=== PATIENT | female | born 1995 | race Caucasian/White ===

== ENCOUNTER 2018-01-23 19:25 | Emergency (ER) | payer SELFPAY ==
[2018-01-23 19:34] VITALS: BP 135/83; PULSE 76; RESP 18; TEMP 36.2; O2SAT 100; BMI 32.3
[2018-01-23] MEDS: SODIUM CHLORIDE 0.9% 1,000 ML 150 ML IV (23:10)
[2018-01-23] MEDS: KETOROLAC 60 MG/2 ML VIAL 30 MG IV (23:10)
[2018-01-23] MEDS: PANTOPRAZOLE 40 MG VIAL IV (23:11)
[2018-01-23 23:25] LABS: Add Manual Diff / Slide Review NO; Basophils Percent Auto 0.5 % (0-2); Eosinophils Percent Auto 3.4 % (2-4); Hematocrit 35.6 % (36-46); Hemoglobin 11.9 g/dL (12.0-16.0); Lymphocytes Percent Auto 46.9 % (25-40); Mean Corpuscular HGB Conc 33.5 % (30-36); Mean Corpuscular Hemoglobin 28.8 PG (26-34); Mean Corpuscular Volume 85.9 fL (80-100); Monocytes Percent Auto 6.5 % (3-14); Neutrophils Absolute Auto 2500 /uL (3000-5900); Neutrophils Percent Auto 42.7 % (50-75); Platelet Count 192 X10^3/uL (150-400); Red Blood Cell Count 4.15 X10^6/uL (4.0-5.2); Red Cell Distribution Width 13.9 % (11.6-14.8)
[2018-01-23 23:39] LABS: Alanine Aminotransferase 32 IU/L (9-52); Albumin 3.5 g/dL (3.5-5.0); Albumin Globulin Ratio 1.3 (1.0-2.8); Alkaline Phosphatase 54 U/L (38-126); Aspartate Aminotransferase 24 IU/L (14-36); BUN Creatinine Ratio 21.4 (6-22); Bilirubin Total 0.2 mg/dL (0.2-1.3); Blood Urea Nitrogen 15 mg/dL (7-17); Calcium 8.9 mg/dL (8.4-10.2); Carbon Dioxide 27 mmol/L (22-32); Chloride 105 mmol/L (98-107); Estimated Glomerular Filt Rate > 60.0 mL/min (>60); Globulin 2.6 g/dL (1.7-4.1); Glucose 87 mg/dL (70-100); HEMOLYSIS < 15 (0-50); Lipase 79 U/L (23-300); Potassium 3.8 mmol/L (3.4-5.1); Sodium 140 mmol/L (137-145); Total Protein 6.1 g/dL (6.3-8.2)
[2018-01-23 23:40] VITALS: BP 138/86; PULSE 58; O2SAT 99
--- NOTE | 2018-01-24 00:56 | ED_ITS ---
HPI - Abdominal Pain General Chief Complaint: Abdominal Pain Stated Complaint: ABD PAIN Time Seen by Provider: 01/23/18 22:03 Source: patient Mode of arrival: ambulatory Limitations: no limitations History of Present Illness HPI narrative: The patient presents with upper and lower abdominal pain for the past 2 days. The pain is in epigastric and suprapubic areas. She has no fever. She has no associated nausea, vomiting or diarrhea. Her appetite has been decreased. She has no urinary symptoms. Her last menstrual cycle was 4 days ago and was irregular and abnormally light. She does not believe she is . She was seen here July 2017 with abdominal pain. Ultrasound at that time revealed a fluid collection in the right adnexal region, but the ovary appeared normal. She is on medication for PCOS. Regarding the abdominal pain she does a lot a lifting work. She can recall no injury. Related Data Home Medications Medication Instructions Recorded Confirmed acetaminophen 325 mg PO PRN PRN #0 08/19/17 01/23/18 Previous Rx's Medication Instructions Recorded norgestimate-ethinyl estradiol 1 tab PO QDAY #3 pac 08/27/17 [Ortho-Cyclen (28)] ibuprofen 600 mg PO QID PRN #30 tab 01/24/18 tramadol 50 mg PO Q6H PRN #20 tab 01/24/18 Allergies Allergy/AdvReac Type Severity Reaction Status Date / Time Penicillins [PENICILLINS] Allergy Intermediate Verified 01/23/18 19:56 Review of Systems Review of Systems All systems reviewed & are unremarkable except as noted in HPI and below Constitutional Denies chills, Denies fever(s), Denies lethargy and Denies weakness ENT Ears, Nose, Mouth, and Throat: Denies dysphagia, Denies sinus pressure and Denies sore throat Cardiovascular Denies chest pain, Denies rapid heart rate, Denies edema, Denies dyspnea and Denies dyspnea on exertion Respiratory Denies cough, Denies dyspnea, Denies dyspnea on exertion and Denies wheezing Gastrointestinal Gastrointestinal: Reports as per HPI, Reports abdominal pain, Denies change in bowel habits, Denies dysphagia, Denies diarrhea, Denies nausea and Denies vomiting Genitourinary Reports dysmenorrhea, Denies flank pain, Denies urinary hesitancy, Denies urinary urgency and Denies vaginal discharge Musculoskeletal Denies back pain Integumentary/Breasts Denies erythema, Denies rash and Denies wounds Neurologic Denies weakness Allergic/Immunologic Denies wheezing [facility] Medical History PCOS (polycystic ovarian syndrome) (Acute) Surgical History History of third molar tooth extraction Social History Smoking Status: Former smoker Exam Initial Vital Signs Initial Vital Signs: Vital Signs Temperature 97.2 F L 01/23/18 19:34 Pulse Rate 76 01/23/18 19:34 Respiratory Rate 18 01/23/18 19:34 Blood Pressure 135/83 H 01/23/18 19:34 Pulse Oximetry 100 01/23/18 19:34 Const General: cooperative and well developed Nutritional Appearance: well nourished Orientation: alert, awake, oriented x3 and not confused HENMT Head: normocephalic and atraumatic Ears: external ears normal and TM's normal bilaterally Nose: external nose normal and No nasal discharge Face and sinus: sinuses nontender, face symmetric, no sinus tenderness and No dry mucous membranes Mouth: oral mucosae normal and moist mucous membranes Teeth and gingiva: dentition normal Throat: tonsils normal and uvula midline Eyes General: appearance normal, both eyes and all related structures (no icterus) Resp Effort & Inspection: normal respiratory effort, able to speak in complete sentences, no respiratory distress and no use of accessory muscles Auscultation: clear to auscultation bilaterally, no rales, no rhonchi and no wheezes Cardio Rate: regular rate Rhythm: regular rhythm Heart Sounds: no click, no gallops, no murmurs and no rubs Pulses: normal peripheral pulses GI Inspection: non-distended Palpation: no hepatosplenomegaly and tender (Tender in the upper central abdomen and in the suprapubic area. Tenderness seems to be focused along the rectus sheath. No guarding or rebound. No right lower quadrant tenderness.) Auscultation: normal bowel sounds Course Orders Ordered: ED Orders 01/23/18 23:15 Complete Blood Count AUTO DIFF Stat Comprehensive Metabolic Panel Stat Lipase Stat Discontinued Medications Sodium Chloride (Normal Saline 0.9%) 1,000 mls @ 150 mls/hr IV CONT WARNER Last Admin: 01/23/18 23:10 Dose: 150 mls/hr Ketorolac Tromethamine (Toradol) 30 mg IV NOW ONE Stop: 01/23/18 22:38 Last Admin: 01/23/18 23:10 Dose: 30 mg Pantoprazole Sodium (Protonix) 40 mg IV NOW ONE Stop: 01/23/18 22:38 Last Admin: 01/23/18 23:11 Dose: 40 mg Tramadol HCl (Ultram 50mg Prepack) 1 bottle MISC SEEINSTR ONE Stop: 01/24/18 01:17 Last Admin: 01/24/18 01:45 Dose: 1 bottle Vital Signs - 8 hr 01/23/18 19:34 01/23/18 23:40 01/24/18 01:30 Temperature 97.2 F L Pulse Rate 76 58 L 73 Respiratory Rate 18 Blood Pressure 135/83 H Blood Pressure [Right Arm] 138/86 H 121/70 H Pulse Oximetry 100 99 98 MDM - Abdominal Pain Medical Records Attestation: I reviewed the patient's medical records. Lab Data Attestation: I reviewed the patient's lab results. Result diagrams: 01/23/18 23:15 01/23/18 23:15 Lab Results 01/23/18 01/23/18 Range/Units 23:15 23:15 WBC 6.0 (4.5-11.0) X10^3/uL RBC 4.15 (4.0-5.2) X10^6/uL Hgb 11.9 L (12.0-16.0) g/dL Hct 35.6 L (36-46) % MCV 85.9 (80-100) fL MCH 28.8 (26-34) PG MCHC 33.5 (30-36) % RDW 13.9 (11.6-14.8) % Plt Count 192 (150-400) X10^3/uL Neut % (Auto) 42.7 L (50-75) % Lymph % (Auto) 46.9 H (25-40) % [place] % (Auto) 6.5 (3-14) % Eos % (Auto) 3.4 (2-4) % Baso % (Auto) 0.5 (0-2) % Neut # (Auto) 2500 L (7544-6036) /uL Sodium 140 (137-145) mmol/L Potassium 3.8 (3.4-5.1) mmol/L Chloride 105 (98-107) mmol/L Carbon Dioxide 27 (22-32) mmol/L BUN 15 (7-17) mg/dL Creatinine 0.70 (0.52-1.04) mg/dL Estimated GFR > 60.0 (>60) mL/min BUN/Creatinine Ratio 21.4 (6-22) Glucose 87 (70-100) mg/dL Calcium 8.9 (8.4-10.2) mg/dL Total Bilirubin 0.2 (0.2-1.3) mg/dL AST 24 (14-36) IU/L ALT 32 (9-52) IU/L Alkaline Phosphatase 54 (38-126) U/L Total Protein 6.1 L (6.3-8.2) g/dL Albumin 3.5 (3.5-5.0) g/dL Globulin 2.6 (1.7-4.1) g/dL Albumin/Globulin Ratio 1.3 (1.0-2.8) Lipase 79 (23-300) U/L Point of care testing: Point of Care Testing Test Results Negative Urine Dip Bedside Urine Glucose Negative Bedside Urine Bilirubin - Negative Bedside Urine Ketone - Negative Urine Specific [place] 1.020 Bedside Urine Occult Blood - Negative Bedside Urine pH 6.5 Bedside Urine Protein - Negative Bedside Urine Urobilinogen - Negative Bedside Urine Nitrite - Negative Discharge Plan Departure Patient Disposition: Home, Self-Care Clinical Impression: Abdominal wall pain Discharge Date/Time: 01/24/18 01:56 Interventions: ED Discharge Assessment Last Done: 01/24/18 01:55 Instructions: DI for Abdominal Pain-Adult Activity Restrictions/Additional Instructions: Motrin 600 mg every 6 hr as needed for pain. Tramadol every 6 hr for added pain control. Return here for increasing pain or fever. Prescriptions: New tramadol 50 mg tablet 50 mg PO Q6H PRN (Reason: pain) Qty: 20 RF: 0 ibuprofen 600 mg tablet 600 mg PO QID PRN (Reason: pain) Qty: 30 RF: 0 No Action acetaminophen 325 MG tablet 325 mg PO PRN PRN (Reason: Pain (Scale Score 1-3)) Qty: 0 RF: 0 norgestimate-ethinyl estradiol [Ortho-Cyclen (28)] 1 EACH tablet 1 tab PO QDAY Qty: 3 RF: 3
[2018-01-24 01:30] VITALS: BP 121/70; PULSE 73; O2SAT 98
[2018-01-24] MEDS: TRAMADOL 50 MG PREPACK 1 BOTTLE MISC (01:45)
--- NOTE | 2018-03-04 19:55 | PC.NURSE ---
Addendum entered by Saida Douglass R.N. 03/05/18 18:39: It took two and one half hours to infuse. Original Note: She received 375 ml of her normal saline.625 ml wasted.
== END 2018-01-24 01:56 | disposition home or self-care (01) ==
PROVIDERS: Emergency Provider Emergency Medicine; PCP Obstetrics & Gynecology
DX: R10.9 Unspecified abdominal pain (principal)
CPT/HCPCS: 36415; 80053; 81003; 81025; 83690; 85025; 96361; 96374; 96375; 99283; 99284; C9113; J1885

== ENCOUNTER 2018-01-26 19:06 | Emergency (ER) | payer SELFPAY ==
[2018-01-26 19:09] VITALS: BP 136/90; PULSE 67; RESP 20; TEMP 37.1; O2SAT 100
--- NOTE | 2018-01-26 19:33 | DI.RAD.S_ITS ---
PROCEDURE: XR ACUTE ABDOMEN SERIES INDICATIONS: Abdominal pain TECHNIQUE: One view chest and two views of the abdomen were acquired. COMPARISON: [facility], CR, ABD ACUTE SERIES, 10/02/2011, 9:47. FINDINGS: Surgical changes and devices: None. Chest: Lungs are clear. Heart size is normal. No pleural effusions. No pneumoperitoneum. Abdomen: Bowel gas pattern is normal. No suspicious calcifications. Visualized solid organ contours appear normal. Bones: No suspicious bony lesions. IMPRESSION: No acute process. Dictated by: Renetta Cedeño M.D. on 01/26/2018 at 20:26 Approved by: Renetta Cedeño M.D. on 01/26/2018 at 20:26
--- NOTE | 2018-01-26 19:33 | DI.US.S_ITS ---
PROCEDURE: US ABDOMEN COMPLETE INDICATIONS: PAIN TECHNIQUE: Real-time scanning was performed of the abdominal and retroperitoneal organs, with image documentation. COMPARISON: None. FINDINGS: Liver: Liver is normal in size and homogeneous in echotexture. Gallbladder: Is within normal limits Biliary ducts: Intrahepatic bile ducts are non-dilated. Extrahepatic bile duct caliber measures 7 mm. Normal is 6-7 mm or less in diameter, or 10 mm or less post-cholecystectomy. Pancreas: Visualized portions of the pancreas are sonographically normal. Spleen: Spleen is normal in size and homogeneous in echotexture. Kidneys: Kidneys are normal in size and echotexture. Right kidney measures 11.3 cm long; left kidney measures 10.6 cm long. No hydronephrosis or nephrolithiasis. No solid masses. Aorta: Visualized aorta is normal in caliber at less than 3 cm. Iliacs: Proximal common iliac arteries are normal in caliber at less than 2.5 cm. IVC: Intrahepatic inferior vena cava is patent. Miscellaneous: No free abdominal fluid. IMPRESSION: No acute process. Dictated by: Renetta Cedeño M.D. on 01/26/2018 at 20:05 Approved by: Renetta Cedeño M.D. on 01/26/2018 at 20:06
[2018-01-26 19:52] LABS: Add Manual Diff / Slide Review NO; Basophils Percent Auto 0.4 % (0-2); Eosinophils Percent Auto 1.8 % (2-4); Hematocrit 38.8 % (36-46); Hemoglobin 13.4 g/dL (12.0-16.0); Lymphocytes Percent Auto 28.3 % (25-40); Mean Corpuscular HGB Conc 34.4 % (30-36); Mean Corpuscular Volume 84.3 fL (80-100); Monocytes Percent Auto 4.9 % (3-14); Neutrophils Absolute Auto 4700 /uL (3000-5900); Neutrophils Percent Auto 64.6 % (50-75); Platelet Count 224 X10^3/uL (150-400); Red Cell Distribution Width 13.7 % (11.6-14.8); White Blood Cell Count 7.3 X10^3/uL (4.5-11.0)
[2018-01-26 20:00] VITALS: BP 127/77; PULSE 66; RESP 15; O2SAT 100
[2018-01-26] MEDS: SODIUM CHLORIDE 0.9% 1,000 ML 150 ML IV (20:02)
[2018-01-26] MEDS: PANTOPRAZOLE 40 MG VIAL IV (20:02)
[2018-01-26 20:15] LABS: Alanine Aminotransferase 28 IU/L (9-52); Albumin 4.5 g/dL (3.5-5.0); Albumin Globulin Ratio 1.6 (1.0-2.8); Alkaline Phosphatase 60 U/L (38-126); Aspartate Aminotransferase 29 IU/L (14-36); BUN Creatinine Ratio 11.4 (6-22); Bilirubin Total 0.4 mg/dL (0.2-1.3); Blood Urea Nitrogen 8 mg/dL (7-17); Calcium 9.2 mg/dL (8.4-10.2); Carbon Dioxide 32 mmol/L (22-32); Chloride 99 mmol/L (98-107); Estimated Glomerular Filt Rate > 60.0 mL/min (>60); Globulin 2.9 g/dL (1.7-4.1); Glucose 89 mg/dL (70-100); HEMOLYSIS < 15 (0-50); Lipase 54 U/L (23-300); Potassium 4.6 mmol/L (3.4-5.1); Sodium 138 mmol/L (137-145); Total Protein 7.4 g/dL (6.3-8.2)
--- NOTE | 2018-01-26 20:20 | ED_ITS ---
HPI - Abdominal Pain General Chief Complaint: Abdominal Pain Stated Complaint: ABDOMINAL PAIN Time Seen by Provider: 01/26/18 19:10 Source: patient and family Mode of arrival: ambulatory Limitations: no limitations History of Present Illness HPI narrative: [age] year old female presents for the 2nd time in the past few days for evaluation of generalized abdominal discomfort. It had started after she we developed constipation for 5 days and then generalized abdominal discomfort in the absence of fever or vomiting. She presented to the emergency department and had a thorough evaluation without any significant findings. She was discharged home and took some magnesium citrate and subsequently developed significant cramping and some diarrhea. She continues deny any fever or chills. She denies radiation of her discomfort. MD complaint: abdominal pain Onset (ago): day(s) Pain Consistency: constant Location: diffuse Severity: moderate Quality: cramping Radiation: none Migration to: no migration Relieving factors: nothing Exacerbating factors: eating and movement Associated symptoms: nausea Related Data Home Medications Medication Instructions Recorded Confirmed acetaminophen 325 mg PO PRN PRN #0 08/19/17 01/23/18 Previous Rx's Medication Instructions Recorded norgestimate-ethinyl estradiol 1 tab PO QDAY #3 pac 08/27/17 [Ortho-Cyclen (28)] ibuprofen 600 mg PO QID PRN #30 tab 01/24/18 tramadol 50 mg PO Q6H PRN #20 tab 01/24/18 Allergies Allergy/AdvReac Type Severity Reaction Status Date / Time Penicillins [PENICILLINS] Allergy Intermediate Verified 01/23/18 19:56 Review of Systems Review of Systems All systems reviewed & are unremarkable except as noted in HPI and below Constitutional Denies chills, Denies fever(s), Reports headache(s), Denies lethargy and Denies weakness Eyes Denies change in vision, Denies eye discharge, Denies irritation and Denies loss of vision ENT Ears, Nose, Mouth, and Throat: Denies change in voice, Reports headache(s), Denies neck pain and Denies sore throat Cardiovascular Denies chest pain, Denies irregular heart rhythm, Denies lightheadedness, Denies palpitations, Denies dyspnea, Denies dyspnea on exertion and Denies orthopnea Respiratory Denies cough, Denies dyspnea, Denies dyspnea on exertion and Denies wheezing Gastrointestinal Gastrointestinal: Reports abdominal pain, Denies change in bowel habits, Reports cramping, Denies diarrhea, Reports nausea and Denies vomiting Genitourinary Denies hematuria, Denies flank pain, Denies urinary incontinence and Denies urinary urgency Musculoskeletal Denies neck pain Integumentary/Breasts Denies pruritus, Denies erythema, Denies rash and Denies wounds Neurologic Denies confusion, Reports headache(s), Denies loss of vision and Denies weakness Psychiatric Denies anxiety, Denies confusion, Denies depression, Denies homicidal ideation and Denies suicidal ideation Endocrine Denies palpitations Hematologic/Lymphatic Denies easy bruising Allergic/Immunologic Denies wheezing [facility] Social History Smoking Status: Former smoker Exam Initial Vital Signs Initial Vital Signs: Vital Signs Temperature 98.8 F 01/26/18 19:09 Pulse Rate 67 01/26/18 19:09 Respiratory Rate 20 01/26/18 19:09 Blood Pressure 136/90 H 01/26/18 19:09 Pulse Oximetry 100 01/26/18 19:09 Const General: cooperative and well developed Nutritional Appearance: well nourished Orientation: alert, awake, oriented x3 and not confused HENIL Head: normocephalic and atraumatic Ears: external ears normal and TM's normal bilaterally Nose: external nose normal and No nasal discharge Face and sinus: sinuses nontender, face symmetric, no sinus tenderness and No dry mucous membranes Mouth: oral mucosae normal and moist mucous membranes Teeth and gingiva: dentition normal Throat: tonsils normal and uvula midline Eyes General: appearance normal, both eyes and all related structures Eyelids: eyelids normal Conjunctivae: conjunctivae normal Sclera: sclerae normal Pupils: PERRL EOM: EOM intact bilaterally Neck Neck: normal visual inspection, trachea midline, No lymphadenopathy, No midline deformity and No JVD Lymphatic: No lymphedema Chest Chest: normal inspection of the chest Resp Effort & Inspection: normal respiratory effort, able to speak in complete sentences, no respiratory distress and no use of accessory muscles Auscultation: clear to auscultation bilaterally, no rales, no rhonchi and no wheezes Cardio Rate: regular rate Rhythm: regular rhythm Heart Sounds: no click, no gallops, no murmurs and no rubs Pulses: normal peripheral pulses GI Inspection: non-distended Palpation: soft, no hepatosplenomegaly, No guarding, No pulsatile mass and tender Auscultation: normal bowel sounds Back/Spine/Pelvis Back: No CVA tenderness Cervical Spine: cervical ROM normal and No pain with cervical ROM Thoracic/Lumbar Spine: thoracic and lumbar spine normal to inspection Skin General: no rashes or lesions noted, No jaundice and No petechiae Neuro General: alert, oriented x3, gait normal and no focal motor deficits Speech: speech normal Extrem General: full ROM, no clubbing, cyanosis or edema, no pedal edema and no calf tenderness Psych Appearance: well kempt Mental Status: mental status grossly normal Attitude: cooperative Thought Content: normal and suicidality Judgment: judgment good Course Orders Ordered: ED Orders 01/26/18 19:33 US abdomen complete Stat XR acute abdomen series Stat 01/26/18 19:40 Complete Blood Count AUTO DIFF Stat Comprehensive Metabolic Panel Stat Lipase Stat Discontinued Medications Sodium Chloride (Normal Saline 0.9%) 1,000 mls @ 150 mls/hr IV CONT WARNER Last Infusion: 01/26/18 21:10 Dose: 0 mls/hr Admin: 01/26/18 20:02 Dose: 150 mls/hr Ketorolac Tromethamine (Toradol) 15 mg IV NOW ONE Stop: 01/26/18 20:25 Last Admin: 01/26/18 20:28 Dose: 15 mg Pantoprazole Sodium (Protonix) 40 mg IV NOW ONE Stop: 01/26/18 19:33 Last Admin: 01/26/18 20:02 Dose: 40 mg Vital Signs - 8 hr 01/26/18 19:09 01/26/18 20:00 Temperature 98.8 F Pulse Rate 67 66 Respiratory Rate 20 15 Blood Pressure 136/90 H Blood Pressure [Left Arm] 127/77 H Pulse Oximetry 100 100 MDM - Abdominal Pain Lab Data Result diagrams: 01/26/18 19:40 01/26/18 19:40 Lab Results 01/26/18 01/26/18 Range/Units 19:40 19:40 WBC 7.3 (4.5-11.0) X10^3/uL RBC 4.60 (4.0-5.2) X10^6/uL Hgb 13.4 (12.0-16.0) g/dL Hct 38.8 (36-46) % MCV 84.3 (80-100) fL MCH 29.0 (26-34) PG MCHC 34.4 (30-36) % RDW 13.7 (11.6-14.8) % Plt Count 224 (150-400) X10^3/uL Neut % (Auto) 64.6 (50-75) % Lymph % (Auto) 28.3 (25-40) % [place] % (Auto) 4.9 (3-14) % Eos % (Auto) 1.8 L (2-4) % Baso % (Auto) 0.4 (0-2) % Neut # (Auto) 4700 (6056-1228) /uL Sodium 138 (137-145) mmol/L Potassium 4.6 (3.4-5.1) mmol/L Chloride 99 (98-107) mmol/L Carbon Dioxide 32 (22-32) mmol/L BUN 8 (7-17) mg/dL Creatinine 0.70 (0.52-1.04) mg/dL Estimated GFR > 60.0 (>60) mL/min BUN/Creatinine Ratio 11.4 (6-22) Glucose 89 (70-100) mg/dL Calcium 9.2 (8.4-10.2) mg/dL Total Bilirubin 0.4 (0.2-1.3) mg/dL AST 29 (14-36) IU/L ALT 28 (9-52) IU/L Alkaline Phosphatase 60 (38-126) U/L Total Protein 7.4 (6.3-8.2) g/dL Albumin 4.5 (3.5-5.0) g/dL Globulin 2.9 (1.7-4.1) g/dL Albumin/Globulin Ratio 1.6 (1.0-2.8) Lipase 54 (23-300) U/L Point of care testing: Urine Dip Bedside Urine Glucose Negative Bedside Urine Bilirubin - Negative Bedside Urine Ketone - Negative Urine Specific [place] 1.015 Bedside Urine Occult Blood - Negative Bedside Urine pH 8.0 Bedside Urine Protein - Negative Bedside Urine Urobilinogen - Negative Bedside Urine Nitrite - Negative Bedside Urine Leukocytes - Negative Esterase Imaging Data US - abdomen: Radiologist's impression: PROCEDURE: US ABDOMEN COMPLETE INDICATIONS: PAIN TECHNIQUE: Real-time scanning was performed of the abdominal and retroperitoneal organs, with image documentation. COMPARISON: None. FINDINGS: Liver: Liver is normal in size and homogeneous in echotexture. Gallbladder: Is within normal limits Biliary ducts: Intrahepatic bile ducts are non-dilated. Extrahepatic bile duct caliber measures 7 mm. Normal is 6-7 mm or less in diameter, or 10 mm or less post-cholecystectomy. Pancreas: Visualized portions of the pancreas are sonographically normal. Spleen: Spleen is normal in size and homogeneous in echotexture. Kidneys: Kidneys are normal in size and echotexture. Right kidney measures 11.3 cm long; left kidney measures 10.6 cm long. No hydronephrosis or nephrolithiasis. No solid masses. Aorta: Visualized aorta is normal in caliber at less than 3 cm. Iliacs: Proximal common iliac arteries are normal in caliber at less than 2.5 cm. IVC: Intrahepatic inferior vena cava is patent. Miscellaneous: No free abdominal fluid. IMPRESSION: No acute process. Dictated by: Renetta Cedeño M.D. on 01/26/2018 at 20:05 Approved by: Renetta Cedeño M.D. on 01/26/2018 at 20:06 [facility] Narrative Medical decision making narrative: Patient first had constipation and then worsening symtpoms with mag citrate. Her exam is non specific and repeat labs are unremarkable. Imagining unremarkable Discharge Plan Departure Patient Disposition: Home, Self-Care Clinical Impression: Constipation, Abdominal pain Discharge Date/Time: 01/26/18 21:20 Interventions: ED Discharge Assessment Last Done: 01/26/18 21:15 Instructions: DI for Abdominal Pain-Adult Activity Restrictions/Additional Instructions: *You have been diagnosed with [ abdominal pain due to constipation ] *What to do: *Take over the counter medications as directed 1. Colace - softens your stool 2. Dulcolax - stimulates your bowels *Follow up with your primary care provider in 2-3 days, call for appointment *Return to ER if you should have any new, worsening or concerning symptoms *Drink plenty of water and eat foods high in fiber Prescriptions: No Action acetaminophen 325 MG tablet 325 mg PO PRN PRN (Reason: Pain (Scale Score 1-3)) Qty: 0 RF: 0 norgestimate-ethinyl estradiol [Ortho-Cyclen (28)] 1 EACH tablet 1 tab PO QDAY Qty: 3 RF: 3 tramadol 50 mg tablet 50 mg PO Q6H PRN (Reason: pain) Qty: 20 RF: 0 ibuprofen 600 mg tablet 600 mg PO QID PRN (Reason: pain) Qty: 30 RF: 0
[2018-01-26] MEDS: KETOROLAC 60 MG/2 ML VIAL 15 MG IV (20:28)
== END 2018-01-26 21:20 | disposition home or self-care (01) ==
PROVIDERS: Emergency Provider Emergency Medicine; PCP Obstetrics & Gynecology
DX: K59.00 Constipation, unspecified (principal); R10.9 Unspecified abdominal pain
CPT/HCPCS: 36591; 74022; 76700; 80053; 81003; 83690; 85025; 96361; 96374; 96375; 99283; 99284; C9113; J1885

== ENCOUNTER 2018-08-14 05:56 | Emergency (ER) | payer BC, SELFPAY ==
[2018-08-14 06:11] VITALS: BP 139/77; PULSE 76; RESP 20; TEMP 36.8; O2SAT 99; BMI 33.3
[2018-08-14 06:51] LABS: Add Manual Diff / Slide Review NO; Basophils Absolute Auto 0 /uL (0-100); Basophils Percent Auto 0.4 % (0-2); Eosinophils Absolute Auto 100 /uL (0-450); Eosinophils Percent Auto 2.1 % (2-4); Hematocrit 37.8 % (36-46); Hemoglobin 12.8 g/dL (12.0-16.0); Lymphocytes Absolute Auto 2200 /uL (1100-4500); Lymphocytes Percent Auto 43.5 % (25-40); Mean Corpuscular HGB Conc 33.8 % (30-36); Mean Corpuscular Hemoglobin 28.4 PG (26-34); Monocytes Absolute Auto 400 /uL (0-900); Monocytes Percent Auto 8.7 % (3-14); Neutrophils Absolute Auto 2300 /uL (1500-7000); Neutrophils Percent Auto 45.3 % (50-75); Platelet Count 191 X10^3/uL (150-400); Red Cell Distribution Width 13.9 % (11.6-14.8); White Blood Cell Count 5.1 X10^3/uL (4.5-11.0)
[2018-08-14 06:53] LABS: Prothrombin Time 10.9 SECONDS (10.1-12.7)
[2018-08-14 06:56] LABS: PTT Partial Thromboplastin Tim 31 SECONDS (26.4-36.2)
[2018-08-14 07:03] LABS: Alanine Aminotransferase 26 IU/L (9-52); Albumin 4.1 g/dL (3.5-5.0); Albumin Globulin Ratio 1.5 (1.0-2.8); Alkaline Phosphatase 50 U/L (38-126); Aspartate Aminotransferase 24 IU/L (14-36); BUN Creatinine Ratio 13.8 (6-22); Bilirubin Total 0.1 mg/dL (0.2-1.3); Blood Urea Nitrogen 11 mg/dL (7-17); Calcium 8.3 mg/dL (8.4-10.2); Carbon Dioxide 26 mmol/L (22-32); Chloride 104 mmol/L (98-107); Estimated Glomerular Filt Rate > 60.0 mL/min (>60); Globulin 2.8 g/dL (1.7-4.1); Glucose 91 mg/dL (70-100); HEMOLYSIS < 15 (0-50); Lipase 98 U/L (23-300); Potassium 3.4 mmol/L (3.4-5.1); Sodium 142 mmol/L (137-145); Total Protein 6.9 g/dL (6.3-8.2)
--- NOTE | 2018-08-14 07:04 | ED.ABDPAIN ---
HPI - Abdominal Pain General Chief Complaint: Abdominal Pain Stated Complaint: severe cramping, couldnt move, happened while driv Time Seen by Provider: 08/14/18 07:04 Source: patient Mode of arrival: ambulatory Limitations: no limitations History of Present Illness HPI narrative: Patient is a 22-year-old female here for evaluation of lower abdominal cramping and also passage of large blood clots from the vagina. She states that her symptoms started 3 days ago. They been worsening over the past 3 days. She states this morning she had a increase in the cramping which brought her into the emergency department. She is on day 3 of her menstrual cycle. She is currently taking an oral control pill. No prior abdominal surgeries. States that her last bowel movement was several days ago. Has had off and on fevers for the past month. Has been trying Tylenol and Motrin for her symptoms at home. Related Data Home Medications Medication Instructions Recorded Confirmed acetaminophen 325 mg PO PRN PRN #0 08/19/17 01/23/18 Previous Rx's Medication Instructions Recorded norgestimate-ethinyl estradiol 1 tab PO QDAY #3 pac 08/27/17 [Ortho-Cyclen (28)] ibuprofen 600 mg PO QID PRN #30 tab 01/24/18 tramadol 50 mg PO Q6H PRN #20 tab 01/24/18 Allergies Allergy/AdvReac Type Severity Reaction Status Date / Time Penicillins [PENICILLINS] Allergy Intermediate Verified 01/23/18 19:56 Review of Systems Constitutional Reports fatigue, Reports fever(s) and Denies headache(s) ENT Ears, Nose, Mouth, and Throat: Denies headache(s) Cardiovascular Denies chest pain and Denies dyspnea Respiratory Denies dyspnea Gastrointestinal Gastrointestinal: Reports abdominal pain, Denies change in bowel habits, Denies diarrhea, Denies nausea and Denies vomiting Genitourinary Comments: Passage of large clots through the vagina Musculoskeletal Denies myalgias and Denies arthralgias Integumentary/Breasts Denies rash Neurologic Denies confusion and Denies headache(s) Psychiatric Denies confusion Endocrine Reports fatigue Hematologic/Lymphatic Comments: Not on anticoagulation PFSH Social History Smoking Status: Former smoker Exam Initial Vital Signs Initial Vital Signs: Vital Signs Temperature 98.3 F 08/14/18 06:11 Pulse Rate 76 08/14/18 06:11 Respiratory Rate 20 08/14/18 06:11 Blood Pressure 139/77 08/14/18 06:11 Pulse Oximetry 99 08/14/18 06:11 Const General: cooperative, comfortable, well developed, well groomed and No acute distress Orientation: alert, awake and oriented x3 HENMT Head: normal to inspection and normocephalic Resp Effort & Inspection: normal respiratory effort Cardio Rate: regular rate GI Inspection: non-distended Palpation: soft, No firm and tender (Bilateral lower abdomen without rebound or guarding) Skin Lesions: no lesions Rashes: no rashes Neuro General: alert, awake and oriented x3 Cognition: normal cognition Speech: speech normal Extrem General: normal to inspection and capillary refill normal Psych Appearance: grossly normal and well kempt Course Orders Ordered: ED Orders 08/14/18 06:45 Comprehensive Metabolic Panel Stat Lipase Stat 08/14/18 06:48 Complete Blood Count AUTO DIFF Stat Partial Thromboplastin Time Stat Prothrombin Time INR Stat 08/14/18 07:50 Urinalysis and Microscopic Stat Vital Signs - 8 hr 08/14/18 06:11 Temperature 98.3 F Pulse Rate 76 Respiratory Rate 20 Blood Pressure 139/77 Pulse Oximetry 99 MDM - Abdominal Pain Lab Data Attestation: I reviewed the patient's lab results. Result diagrams: 08/14/18 06:48 08/14/18 06:45 Lab Results 08/14/18 08/14/18 08/14/18 Range/Units 06:45 06:48 06:48 WBC 5.1 (4.5-11.0) X10^3/uL RBC 4.50 (4.0-5.2) X10^6/uL Hgb 12.8 (12.0-16.0) g/dL Hct 37.8 (36-46) % MCV 84.0 (80-100) fL MCH 28.4 (26-34) PG MCHC 33.8 (30-36) % RDW 13.9 (11.6-14.8) % Plt Count 191 (150-400) X10^3/uL Neut % (Auto) 45.3 L (50-75) % Lymph % (Auto) 43.5 H (25-40) % [place] % (Auto) 8.7 (3-14) % Eos % (Auto) 2.1 (2-4) % Baso % (Auto) 0.4 (0-2) % Neut # (Auto) 2300 (3472-5097) /uL Lymph # (Auto) 2200 (7679-4266) /uL [place] # (Auto) 400 (0-900) /uL Eos # (Auto) 100 (0-450) /uL Baso # (Auto) 0 (0-100) /uL PT 10.9 (10.1-12.7) SECONDS INR 1.0 (0.9-1.3) APTT 31 (26.4-36.2) SECONDS Sodium 142 (137-145) mmol/L Potassium 3.4 (3.4-5.1) mmol/L Chloride 104 (98-107) mmol/L Carbon Dioxide 26 (22-32) mmol/L BUN 11 (7-17) mg/dL Creatinine 0.80 (0.52-1.04) mg/dL Estimated GFR > 60.0 (>60) mL/min BUN/Creatinine Ratio 13.8 (6-22) Glucose 91 (70-100) mg/dL Calcium 8.3 L (8.4-10.2) mg/dL Total Bilirubin 0.1 L (0.2-1.3) mg/dL AST 24 (14-36) IU/L ALT 26 (9-52) IU/L Alkaline Phosphatase 50 (38-126) U/L Total Protein 6.9 (6.3-8.2) g/dL Albumin 4.1 (3.5-5.0) g/dL Globulin 2.8 (1.7-4.1) g/dL Albumin/Globulin Ratio 1.5 (1.0-2.8) Lipase 98 (23-300) U/L Urine Color Urine Appearance Urine pH (4.5-8.0) Ur Specific [place] (1.000-1.035) Urine Protein (Negative) Urine Glucose (UA) (Negative) g/dL Urine Ketones (NEGATIVE) Urine Occult Blood (Negative) Urine Nitrate (Negative) Urine Bilirubin (NEGATIVE) Urine Urobilinogen (0.2) E.U./dL Ur Leukocyte Esterase (NEGATIVE) Urine RBC (0-5/HPF) Urine WBC (0-5/HPF) Urine Bacteria (None) Ur Culture Indicated? 08/14/18 Range/Units 07:50 WBC (4.5-11.0) X10^3/uL RBC (4.0-5.2) X10^6/uL Hgb (12.0-16.0) g/dL Hct (36-46) % MCV (80-100) fL MCH (26-34) PG MCHC (30-36) % RDW (11.6-14.8) % Plt Count (150-400) X10^3/uL Neut % (Auto) (50-75) % Lymph % (Auto) (25-40) % [place] % (Auto) (3-14) % Eos % (Auto) (2-4) % Baso % (Auto) (0-2) % Neut # (Auto) (1796-6809) /uL Lymph # (Auto) (2840-7238) /uL [place] # (Auto) (0-900) /uL Eos # (Auto) (0-450) /uL Baso # (Auto) (0-100) /uL PT (10.1-12.7) SECONDS INR (0.9-1.3) APTT (26.4-36.2) SECONDS Sodium (137-145) mmol/L Potassium (3.4-5.1) mmol/L Chloride (98-107) mmol/L Carbon Dioxide (22-32) mmol/L BUN (7-17) mg/dL Creatinine (0.52-1.04) mg/dL Estimated GFR (>60) mL/min BUN/Creatinine Ratio (6-22) Glucose (70-100) mg/dL Calcium (8.4-10.2) mg/dL Total Bilirubin (0.2-1.3) mg/dL AST (14-36) IU/L ALT (9-52) IU/L Alkaline Phosphatase (38-126) U/L Total Protein (6.3-8.2) g/dL Albumin (3.5-5.0) g/dL Globulin (1.7-4.1) g/dL Albumin/Globulin Ratio (1.0-2.8) Lipase (23-300) U/L Urine Color [place] Urine Appearance Cloudy Urine pH 6.5 (4.5-8.0) Ur Specific [place] 1.025 (1.000-1.035) Urine Protein 1+ H (Negative) Urine Glucose (UA) Negative (Negative) g/dL Urine Ketones Negative (NEGATIVE) Urine Occult Blood 3+ H (Negative) Urine Nitrate Negative (Negative) Urine Bilirubin Negative (NEGATIVE) Urine Urobilinogen 0.2 (0.2) E.U./dL Ur Leukocyte Esterase Negative (NEGATIVE) Urine RBC 30-100/hpf H (0-5/HPF) Urine WBC None seen (0-5/HPF) Urine Bacteria None seen (None) Ur Culture Indicated? Cult not indicated Point of care testing: Point of Care Testing Test Results Negative MDM Narrative Medical decision making narrative: Patient is a benign abdominal exam. She is on day 3 of her menstrual cycle. Urinalysis is negative. Her test is negative. She does have a history of PCOS. I feel that her symptoms today are related to her menstrual cycle. Will hold on any further workup for now. She is currently on control and also taking symptomatic treatment for her symptoms. Informed her that she needed to contact her sample stitcher provider to discuss the potential change in her medications. She was given return precautions. She expressed understanding and agreement with plan. Discharge Plan Departure Patient Disposition: Home Clinical Impression: Abdominal pain, Menses painful Instructions: DI for Abdominal Pain-Adult Activity Restrictions/Additional Instructions: Recommend you continue all of your medications as directed. 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 Return to the emergency department for any new symptoms. Prescriptions: No Action acetaminophen 325 MG tablet 325 mg PO PRN PRN (Reason: Pain (Scale Score 1-3)) Qty: 0 RF: 0 norgestimate-ethinyl estradiol [Ortho-Cyclen (28)] 1 EACH tablet 1 tab PO QDAY Qty: 3 RF: 3 tramadol 50 mg tablet 50 mg PO Q6H PRN (Reason: pain) Qty: 20 RF: 0 ibuprofen 600 mg tablet 600 mg PO QID PRN (Reason: pain) Qty: 30 RF: 0
--- NOTE | 2018-08-14 07:34 | PC.NURSE ---
Pt states that she cannot walk to BR. Needs full assist to get out of bed.
[2018-08-14 08:33] LABS: Bacteria Urine None Seen; WBC Urine None Seen (0-5/HPF)
[2018-08-14 08:44] LABS: Appearance Urine UA CLOUDY; Bilirubin Urine UA NEGATIVE (NEGATIVE); Color Urine UA ORANGE; Glucose Urine UA NEGATIVE (Negative); Ketones Urine UA NEGATIVE (NEGATIVE); Leukocyte Esterase Urine UA NEGATIVE (NEGATIVE); Nitrite Urine UA NEGATIVE (Negative); Occult Blood Urine UA 3+ (Negative); Protein Urine UA 1+ (Negative); Specific Gravity Urine UA 1.025 (1.000-1.035); Urobilinogen Urine UA 0.2 E.U./dL (0.2); pH Urine UA 6.5 (4.5-8.0)
[2018-08-14 08:56] LABS: Culture Indicated Urine Cult Not Indicated; RBC Urine 30-100/HPF (0-5/HPF)
[2018-08-14 09:21] VITALS: BP 119/76
== END 2018-08-14 09:22 | disposition home or self-care (01) ==
PROVIDERS: Emergency Provider Emergency Medicine; PCP Obstetrics & Gynecology
DX: R10.9 Unspecified abdominal pain (principal); N94.6 Dysmenorrhea, unspecified
CPT/HCPCS: 36591; 80053; 81001; 81025; 83690; 85025; 85610; 85730; 99283

== ENCOUNTER 2020-03-23 06:25 | Emergency (ER) | payer BC, SELFPAY ==
--- NOTE | 2020-03-23 06:28 | ED_ITS ---
HPI - Back Pain/Injury General Chief Complaint: Back Pain/Injury Stated Complaint: low back pain Time Seen by Provider: 03/23/20 06:27 Source: patient Mode of arrival: Ambulatory Limitations: no limitations History of Present Illness HPI Narrative: 24F former smoker with non contributory medical history presents with severe left lower back pain since moving awkwardly at work. She denies any direct trauma did not fall and impact her spine. She denies any numbness, tingling or weakness. She denies any radiation of the pain down her leg. She denies any loss of control of bowel or bladder. She states her pain is worse with motion and improves with rest. Related Data Home Medications Medication Instructions Recorded Confirmed acetaminophen 325 mg PO PRN PRN #0 08/19/17 01/23/18 Previous Rx's Medication Instructions Recorded ibuprofen 600 mg PO QID PRN #30 tab 01/24/18 tramadol 50 mg PO Q6H PRN #20 tab 01/24/18 norgestimate-ethinyl estradiol 1 tab PO QDAY #3 pac 10/15/18 [Ortho-Cyclen (28)] cyclobenzaprine 10 mg PO TID PRN #14 tab 03/23/20 hydrocodone-acetaminophen 1 tab PO Q4-6H PRN #10 tab 03/23/20 ketorolac 10 mg PO Q6H PRN #14 tab 03/23/20 lidocaine [Lidoderm] 1 patch TOP DAILY #15 each 03/23/20 Allergies Allergy/AdvReac Type Severity Reaction Status Date / Time Penicillins [PENICILLINS] Allergy Intermediate Verified 01/23/18 19:56 Review of Systems Constitutional Constitutional: Denies chills, Denies fatigue, Denies fever(s), Denies frequent falls, Denies lethargy and Denies weakness Eyes Eyes: Denies change in vision, Denies eye discharge, Denies irritation and Denies loss of vision ENT Ears, Nose, Mouth, and Throat: Denies change in voice, Denies dizziness, Denies neck pain, Denies sore throat and Denies throat swelling Cardiovascular Cardiovascular: Denies chest pain, Denies irregular heart rhythm, Denies lightheadedness, Denies palpitations, Denies dyspnea, Denies dyspnea on exertion and Denies orthopnea Respiratory Respiratory: Denies cough, Denies dyspnea, Denies dyspnea on exertion and Denies wheezing Gastrointestinal Gastrointestinal: Denies abdominal pain, Denies change in bowel habits, Denies diarrhea, Denies nausea and Denies vomiting Musculoskeletal Musculoskeletal: Reports back pain, Denies neck pain and Denies numbness Integumentary/Breasts Skin/Breast: Denies pruritus, Denies erythema, Denies rash and Denies wounds Neurologic Neurologic: Denies behavioral changes, Denies confusion, Denies dizziness, Denies frequent falls, Denies loss of vision, Denies numbness and Denies weakness Psychiatric Psychiatric: Denies anxiety, Denies behavioral changes, Denies confusion, Denies depression, Denies homicidal ideation and Denies suicidal ideation Endocrine Endocrine: Denies fatigue, Denies flushing and Denies palpitations Hematologic/Lymphatic Hematologic/Lymphatic: Denies easy bruising Allergic/Immunologic Allergic/Immunologic: Denies urticaria, Denies throat swelling and Denies wheezing Patient History Medical History PCOS (polycystic ovarian syndrome) (Acute) Surgical History History of third molar tooth extraction Social History Smoking Status: Former smoker Smoking Status: Former smoker alcohol intake frequency: 0-2 drinks per day Substance Use Type: does not use Exam Narrative Exam Narrative: GEN: AOx3 and in mild distress EYES: Pupils are equal, round, and reactive to light and accommodation. Extraoccular muscles are intact bilaterally. There is no subconjunctival hemorrhage or exudate. CHEST: Lungs are clear to auscultation bilaterally and free of wheezes, rales, or rhonchi. Heart rate is regular rhythm, there are no murmurs, clicks, rubs, or gallops. There is no chest wall tenderness. ABD: Abdomen is soft and nontender. There is no guarding or rebound. Bowel sounds are normal in all 4 quadrants. There is no mass or organomegaly. EXT: Full painless ROM of all extremities with no loss of sensation or strength. SKIN: Warm, pink, and dry. No erythema or rash BACK: pressing machine tender but free of any obvious external abnormalities. Patient exam notes decreased range of motion and muscle spasm, but no CVA tenderness, or v ertebral point tenderness. There are no symptoms of cauda equina such as saddle anesthesia, and decreased reflexes, decreased sensation or strength. Initial Vital Signs Initial Vital Signs: Vital Signs Temperature 98.1 F 03/23/20 06:31 Respiratory Rate 18 03/23/20 06:31 Blood Pressure 154/85 H 03/23/20 06:31 Pulse Oximetry 97 03/23/20 06:31 Course Orders Ordered: Discontinued Medications Ketorolac Tromethamine (Toradol) 60 mg IM NOW ONE Stop: 03/23/20 06:54 Last Admin: 03/23/20 06:58 Dose: 60 mg Documented by: KATHARINE MDM - Back Pain/Injury MDM Narrative Medical decision making narrative: Multiple etiologies of back pain considered including; Epidural abscess, cauda equina, mass occupying lesion, and other considered Discharge Plan Departure Patient Disposition: Home Clinical Impression: Lumbar back pain Discharge Date/Time: 03/23/20 07:15 Instructions: DI for Back Spasm Activity Restrictions/Additional Instructions: *You have been diagnosed with [ lumbar pain and spasm ] *What to do: *Take medications as directed *Follow up with your primary care provider in 2-3 days, call for an appointment. Let them know you were seen in the Emergency Department and that we ask that you be seen in follow up *Return to ER if you should have any new, worsening or concerning symptoms, such as [loss of control of bowel or bladder, weakness of your leg ] Prescriptions: New cyclobenzaprine 10 mg tablet 10 mg PO TID PRN (Reason: muscle spasm) Qty: 14 RF: 0 hydrocodone-acetaminophen 5-325 mg tablet 1 tab PO Q4-6H PRN (Reason: pain) Qty: 10 RF: 0 ketorolac 10 mg tablet 10 mg PO Q6H PRN (Reason: pain) Qty: 14 RF: 0 lidocaine [Lidoderm] 5 % adhesive patch,medicated 1 patch TOP DAILY Qty: 15 RF: 0 No Action acetaminophen 325 MG tablet 325 mg PO PRN PRN (Reason: Pain (Scale Score 1-3)) Qty: 0 RF: 0 norgestimate-ethinyl estradiol [Ortho-Cyclen (28)] 0.25-35 mg-mcg tablet 1 tab PO QDAY Qty: 3 RF: 3 tramadol 50 mg tablet 50 mg PO Q6H PRN (Reason: pain) Qty: 20 RF: 0 ibuprofen 600 mg tablet 600 mg PO QID PRN (Reason: pain) Qty: 30 RF: 0 Referrals: Dee Chapman MD [Primary Care Provider] - Stand Alone Forms: Work Release Note
[2020-03-23 06:31] VITALS: BP 154/85; RESP 18; TEMP 36.7; O2SAT 97
[2020-03-23] MEDS: KETOROLAC 60 MG/2 ML VIAL IM (06:58)
== END 2020-03-23 07:15 | disposition home or self-care (01) ==
PROVIDERS: Emergency Provider Emergency Medicine; PCP Obstetrics & Gynecology
DX: M54.6 Pain in thoracic spine (principal)
CPT/HCPCS: 96372; 99283; J1885

== ENCOUNTER 2020-06-24 19:53 | Emergency (ER) | payer OTHER, BC, SELFPAY ==
[2020-06-24 20:20] VITALS: BP 145/103; PULSE 87; RESP 16; TEMP 36.9; O2SAT 100; BMI 34.7
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
[2020-06-24 21:08] VITALS: PULSE 82; O2SAT 99
[2020-06-24 21:09] VITALS: BP 137/80; PULSE 83; RESP 16; O2SAT 99
--- NOTE | 2020-06-24 21:21 | PC.NURSE ---
C-collar removed by Dr Wiley.
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
[2020-06-24] MEDS: KETOROLAC 60 MG/2 ML VIAL 30 MG IM (21:27)
[2020-06-24] MEDS: CYCLOBENZAPRINE 10 MG TABLET PO (21:27)
[2020-06-24 21:30] VITALS: BP 136/72; PULSE 78; RESP 16; O2SAT 99
[2020-06-24] MEDS: CYCLOBENZAPRINE 10 MG PREPACK 1 BOTTLE MISC (21:46)
== END 2020-06-24 22:01 | disposition home or self-care (01) ==
PROVIDERS: Emergency Provider Emergency Medicine; PCP Obstetrics & Gynecology
DX: S16.1XXA Strain of muscle, fascia and tendon at neck level, initial encounter (principal); M79.642 Pain in left hand; R07.89 Other chest pain; V89.2XXA Person injured in unspecified motor-vehicle accident, traffic, initial encounter; E28.2 Polycystic ovarian syndrome
CPT/HCPCS: 71046; 73130; 93005; 96372; 99284; J1885

== ENCOUNTER 2020-06-26 17:39 | Emergency (ER) | payer OTHER, BC, SELFPAY ==
[2020-06-26] VITALS (13 sets, daily range): BP systolic 125–160; BP diastolic 70–99; PULSE 74–94; RESP 16; TEMP 36.8; O2SAT 96–100; BMI 34.7
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
[2020-06-26] MEDS: KETOROLAC 60 MG/2 ML VIAL 15 MG IV (22:49)
[2020-06-26] MEDS: CYCLOBENZAPRINE 10 MG PREPACK 1 BOTTLE MISC (22:49)
[2020-06-27] VITALS: BP 136/67; PULSE 92; O2SAT 96
[2020-06-27 00:09] LABS: COVID19 -Nasal RAPID Negative (Negative)
[2020-06-27 00:30] VITALS: BP 129/73; PULSE 77; O2SAT 96
== END 2020-06-27 00:50 | disposition short-term general hospital (02) ==
PROVIDERS: Emergency Provider Emergency Medicine; PCP Obstetrics & Gynecology
DX: S13.4XXA Sprain of ligaments of cervical spine, initial encounter (principal); S14.129A Central cord syndrome at unspecified level of cervical spinal cord, initial encounter; V89.2XXA Person injured in unspecified motor-vehicle accident, traffic, initial encounter; R51.9 Headache, unspecified; E28.2 Polycystic ovarian syndrome
CPT/HCPCS: 70450; 72125; 87635; 96374; 99282; 99284; J1885

== ENCOUNTER → 2022-09-27 16:34 | Outpatient (CLI) | payer OTHER, SELFPAY ==
--- NOTE | 2022-09-27 16:40 | DI.US.S_ITS ---
PROCEDURE: US PELVIC COMPLETE INDICATIONS: PELVIC PAIN TECHNIQUE: Real-time scanning was performed of the pelvic organs, with image documentation. Additional endovaginal scanning was necessary due to incomplete visualization of the adnexal and endometrial structures by transabdominal scanning. COMPARISON: [facility], [place], PELVIC COMPLETE, 08/27/2017, 17:21. FINDINGS: Uterus: Uterus is retroverted and measures 7.9 x 4.3 x 5.0 cm. Endometrium measures up to 1.3 cm in thickness. No internal vascularity within the endometrium identified on color Doppler interrogation. Ovaries: The right ovary measures 2.6 x 1.8 x 2.8 cm, with a calculated ovarian volume of 6.8 cc. The left ovary measures 6.1 x 4.3 x 5.2 cm, with a calculated ovarian volume of 70.7 cc. The ovaries have a normal sonographic appearance. Less than 12 follicles can be seen in each ovary. There is a hypoechoic left ovarian cyst measuring approximately 3.6 x 3.2 x 4.5 cm with posterior acoustic enhancement and low level hypoechoic internal echoes. There is patent arterial and venous flow demonstrated within the left ovary. Other: There is a small amount of free fluid in the pelvic cul-de-sac which is nonspecific. IMPRESSION: 1. Hypoechoic cystic structure in the left ovary is nonspecific but suggestive of an endometrioma. The differential includes other ovarian cysts. 2. Thickening of the endometrium without internal vascularity or discrete mass identified. We strive to produce accurate, complete, and clear reports of imaging services. To assist us in improving patient care, this report was composed using standard report templates and voice recognition software. Therefore, it may contain abnormal punctuation, insertions and/or omissions. Occasional wrong-word or sound-alike substitutions may occur. Though we review the report and make efforts to correct it, we do recommend that the report be read carefully in proper context to recognize any text inaccuracies. Dictated by: Evaristo Vance M.D. on 09/27/2022 at 23:33 Approved by: Evaristo Vance M.D. on 09/27/2022 at 23:38
== END ==
PROVIDERS: PCP Family Medicine; Referring Provider Nurse Practitioner Family; Visit Provider Nurse Practitioner Family
DX: E28.2 Polycystic ovarian syndrome (principal); R10.2 Pelvic and perineal pain; R93.89 Abnormal findings on diagnostic imaging of other specified body structures
CPT/HCPCS: 76830; 76856; 93976

== ENCOUNTER 2022-10-01 10:19 | Emergency (ER) | payer OTHER, SELFPAY ==
[2022-10-01 10:27] VITALS: BP 155/92; PULSE 76; RESP 12; TEMP 36.3; O2SAT 99; BMI 33.9
--- NOTE | 2022-10-01 10:38 | DI.US.S_ITS ---
PROCEDURE: US PELVIC COMPLETE INDICATIONS: INCREASING LLQ PAIN. US 4 DAYS AGO. R/O TORSION. TECHNIQUE: Real-time scanning was performed of the pelvic organs, with image documentation. Additional endovaginal scanning was necessary due to incomplete visualization of the adnexal and endometrial structures by transabdominal scanning. COMPARISON: [facility], US, US PELVIC COMPLETE, 09/27/2022, 16:58. FINDINGS: Uterus: Uterus is anteverted and normal in size at 7.4 x 4.1 x 5.5 cm. The myometrium is homogeneous. The endometrium measures 11 mm combined thickness. Within the endometrium several cystic foci are present. Ovaries: The right ovary measures 4.8 x 1.6 x 2.6 cm, with a calculated ovarian volume of 10.4 cc. The left ovary measures 6.2 x 4.6 x 4.6 cm, with a calculated ovarian volume of 68.2 cc. 4.5 cm focus of decreased echogenicity is present within the left ovary, relatively unchanged. There is a more complex focus measuring 1.7 cm. Mild fluid is noted in the cul-de-sac and adjacent to the left ovary. Vascular flow is identified within the ovary. Other: No pathologic free abdominal or pelvic fluid. IMPRESSION: Left ovarian cyst with mild fluid around the left ovary which could represent partial rupture. Previous left ovarian focus of echogenicity with low level echoes is relatively unchanged. This could represent a complex cyst or endometrioma as previously noted. No evidence of torsion. Cystic foci are present within the endometrium overall nonspecific. These were not identified on prior exam. While they simply may not have been included in the field of view, recommend correlation to beta HCG levels to exclude potential possible . We strive to produce accurate, complete, and clear reports of imaging services. To assist us in improving patient care, this report was composed using standard report templates and voice recognition software. Therefore, it may contain abnormal punctuation, insertions and/or omissions. Occasional wrong-word or sound-alike substitutions may occur. Though we review the report and make efforts to correct it, we do recommend that the report be read carefully in proper context to recognize any text inaccuracies. Dictated by: Marylu Rothman M.D. on 10/01/2022 at 12:16 Approved by: Marylu Rothman M.D. on 10/01/2022 at 12:20
[2022-10-01 10:54] LABS: Appearance Urine UA SL CLOUDY; Bilirubin Urine UA NEGATIVE (NEGATIVE); Color Urine UA YELLOW; Glucose Urine UA NEGATIVE (Negative); Ketones Urine UA NEGATIVE (NEGATIVE); Leukocyte Esterase Urine UA NEGATIVE (NEGATIVE); Nitrite Urine UA NEGATIVE (Negative); Occult Blood Urine UA 2+ (Negative); Protein Urine UA NEGATIVE (Negative)
[2022-10-01 11:15] LABS: RBC Urine 0-1/HPF (0-5/HPF)
[2022-10-01 11:16] LABS: Bacteria Urine None Seen; Culture Indicated Urine Cult Not Indicated; Squamous Epithelial Cell Urine 1-5 /HPF (0-5/HPF); WBC Urine 1-5/HPF (0-5/HPF)
[2022-10-01] MEDS: ACETAMINOPHEN 325 MG TABLET 975 MG PO (13:21)
[2022-10-01] MEDS: METOCLOPRAMIDE HCL 10 MG TABLET PO (13:22)
[2022-10-01] MEDS: diphenhydrAMINE 25 MG TABLET PO (13:23)
[2022-10-01] MEDS: IBUPROFEN 400 MG TABLET 800 MG PO (13:23)
[2022-10-01 13:36] VITALS: BP 125/81; PULSE 76; O2SAT 100
--- NOTE | 2022-10-01 14:14 | ED_ITS ---
HPI - Female Genitourinary <Giovani Cuevas PA-C - Last Filed: 10/01/22 14:32> General Chief complaint: Urogenital-Female Stated complaint: Left Ovary pain Time Seen by Provider: 10/01/22 12:06 Source: patient Mode of arrival: Ambulatory History of Present Illness HPI Narrative: 26-year-old female with a history of ovarian cysts, PID, PCOS, endometriosis, infertility presents to the ED with 5 days of sharp left-sided adnexal pain. Patient states that she has had this pain intermittently since the start of this year, was seen by her PCP Shaquille Felipe, she had an ultrasound 5 days ago that showed some ovarian cysts versus endometrioma, no other acute findings. Patient states that since she had the vaginal ultrasound 5 days ago, the left-sided adnexal pain has worsened in severity, she is mildly nauseous and also has a headache. Patient denies fever, chills, chest pain, shortness of breath, rhinorrhea, sore throat, cough, vomiting, abdominal pain, flank pain, lightheadedness, dizziness, syncope. Patient sees OBGYN Dr. Dee Chapman and her next appointment is at the end of November. Patient is wishing to get , therefore does not wish to go on control. Related Data Home Medications Medication Instructions Recorded Confirmed acetaminophen 325 mg tablet 325 mg PO PRN PRN Pain (Scale 08/19/17 08/28/22 Score 1-3) ##0 Probiotics PO 02/13/21 08/28/22 multivitamin, stress formula pkg PO 07/05/22 08/28/22 Allergies Allergy/AdvReac Type Severity Reaction Status Date / Time Penicillins [PENICILLINS] Allergy Severe Anaphylaxis Verified 10/01/22 10:32 Review of Systems <Giovani Cuevas PA-C - Last Filed: 10/01/22 14:32> Review of Systems ROS Unobtainable: All systems reviewed & are unremarkable except as noted in HPI and below Constitutional Constitutional: Denies chills, Denies fatigue, Denies fever(s), Denies frequent falls, Reports headache(s), Denies lethargy and Denies weakness Eyes Eyes: Denies change in vision, Denies eye discharge, Denies irritation and Denies loss of vision ENT Ears, Nose, Mouth, and Throat: Denies change in voice, Denies dizziness, Reports headache(s), Denies neck pain, Denies sore throat and Denies throat swelling Cardiovascular Cardiovascular: Denies chest pain, Denies irregular heart rhythm, Denies lightheadedness, Denies palpitations, Denies dyspnea, Denies dyspnea on exertion and Denies orthopnea Respiratory Respiratory: Denies cough, Denies dyspnea, Denies dyspnea on exertion and Denies wheezing Gastrointestinal Gastrointestinal: Denies abdominal pain, Denies change in bowel habits, Denies diarrhea, Denies nausea and Denies vomiting Genitourinary Genitourinary: Denies hematuria, Reports pelvic pain, Denies flank pain, Denies urinary incontinence and Denies urinary urgency Musculoskeletal Musculoskeletal: Denies back pain, Denies muscle weakness, Denies neck pain, Denies numbness and Denies tingling Integumentary/Breasts Skin/Breast: Denies pruritus, Denies erythema, Denies rash and Denies wounds Neurologic Neurologic: Denies behavioral changes, Denies confusion, Denies dizziness, Denies frequent falls, Reports headache(s), Denies loss of vision, Denies numbness, Denies tingling and Denies weakness Psychiatric Psychiatric: Denies anxiety, Denies behavioral changes, Denies confusion, Denies depression, Denies homicidal ideation and Denies suicidal ideation Endocrine Endocrine: Denies fatigue, Denies flushing and Denies palpitations Hematologic/Lymphatic Hematologic/Lymphatic: Denies easy bruising Allergic/Immunologic Allergic/Immunologic: Denies urticaria, Denies throat swelling and Denies wheezing Patient History <Giovani Cuevas PA-C - Last Filed: 10/01/22 14:32> Medical History Cervical cancer screening PCOS (polycystic ovarian syndrome) Surgical History History of third molar tooth extraction alcohol intake frequency: 0-2 drinks per day Substance Use Type: does not use Exam <Giovani Cuevas PA-C - Last Filed: 10/01/22 14:32> Narrative Exam Narrative: Const General:?cooperative, healthy appearing and comfortable [facility] Head:?normal to inspection Ears:?hearing grossly normal bilaterally Nose:?external nose normal Face and sinus:?normal facial exam and sinuses nontender Mouth:?oral mucosae normal Throat:?posterior oropharynx normal Eyes General:?appearance normal, both eyes and all related structures Neck Neck:?normal visual inspection and no lymphadenopathy noted Resp Effort & Inspection:?normal respiratory effort Auscultation:?clear to auscultation bilaterally Cardio Rate:?regular rate Rhythm:?regular rhythm GI/ Left adnexal tenderness to palpation. Abdomen is soft, nondistended. There is no CVA tenderness. Neuro General:?patient alert, patient awake and patient oriented x3; CN 1 through 12 intact bilaterally; gait is normal; PERRLA; patient is neurologically intact. Initial Vital Signs Initial Vital Signs: Vital Signs Temperature 97.4 F L 10/01/22 10:27 Pulse Rate 76 10/01/22 10:27 Respiratory Rate 12 10/01/22 10:27 Blood Pressure 155/92 H 10/01/22 10:27 Pulse Oximetry 99 10/01/22 10:27 Oxygen Delivery Method Room Air 10/01/22 10:27 <Al Ro MD - Last Filed: 10/13/22 20:49> Initial Vital Signs Initial Vital Signs: Vital Signs Temperature 97.4 F L 10/01/22 10:27 Pulse Rate 76 10/01/22 10:27 Respiratory Rate 12 10/01/22 10:27 Blood Pressure 155/92 H 10/01/22 10:27 Pulse Oximetry 99 10/01/22 10:27 Oxygen Delivery Method Room Air 10/01/22 10:27 Course <Givoani Cuevas PA-C - Last Filed: 10/01/22 14:32> Orders Ordered: Discontinued Medications Acetaminophen (Acetaminophen 325 Mg Tablet) 975 mg PO NOW ONE Stop: 10/01/22 13:00 Last Admin: 10/01/22 13:21 Dose: 975 mg Documented By: LINA Diphenhydramine HCl (Diphenhydramine 25 Mg Tablet) 25 mg PO NOW ONE Stop: 10/01/22 13:00 Last Admin: 10/01/22 13:23 Dose: 25 mg Documented By: LINA Ibuprofen (Ibuprofen 400 Mg Tablet) 800 mg PO NOW ONE Stop: 10/01/22 13:00 Last Admin: 10/01/22 13:23 Dose: 800 mg Documented By: LINA Metoclopramide HCl (Metoclopramide Hcl 10 Mg Tablet) 10 mg PO NOW ONE Stop: 10/01/22 13:00 Last Admin: 10/01/22 13:22 Dose: 10 mg Documented By: LINA Vital Signs Vital signs: Vital Signs - 8 hr 10/01/22 10:27 10/01/22 13:36 Temperature 97.4 F L Pulse Rate 76 76 Respiratory Rate 12 Blood Pressure 155/92 H 125/81 Pulse Oximetry 99 100 Oxygen Delivery Method Room Air Room Air <Al Ro MD - Last Filed: 10/13/22 20:49> Orders Ordered: Discontinued Medications Acetaminophen (Acetaminophen 325 Mg Tablet) 975 mg PO NOW ONE Stop: 10/01/22 13:00 Last Admin: 10/01/22 13:21 Dose: 975 mg Documented By: LINA Diphenhydramine HCl (Diphenhydramine 25 Mg Tablet) 25 mg PO NOW ONE Stop: 10/01/22 13:00 Last Admin: 10/01/22 13:23 Dose: 25 mg Documented By: LINA Ibuprofen (Ibuprofen 400 Mg Tablet) 800 mg PO NOW ONE Stop: 10/01/22 13:00 Last Admin: 10/01/22 13:23 Dose: 800 mg Documented By: LINA Metoclopramide HCl (Metoclopramide Hcl 10 Mg Tablet) 10 mg PO NOW ONE Stop: 10/01/22 13:00 Last Admin: 10/01/22 13:22 Dose: 10 mg Documented By: LINA Vital Signs Vital signs: Vital Signs - 8 hr 10/01/22 10:27 10/01/22 13:36 Temperature 97.4 F L Pulse Rate 76 76 Respiratory Rate 12 Blood Pressure 155/92 H 125/81 Pulse Oximetry 99 100 Oxygen Delivery Method Room Air Room Air MDM - Female Genitourinary <Giovani Cuevas PA-C - Last Filed: 10/01/22 14:32> Lab Data Labs: Lab Results 10/01/22 Range/Units 10:40 Urine Color Yellow Urine Appearance Sl cloudy Urine pH 7.0 (4.5-8.0) Ur Specific [place] 1.020 (1.000-1.035) Urine Protein Negative (Negative) Urine Glucose (UA) Negative (Negative) g/dL Urine Ketones Negative (NEGATIVE) Urine Occult Blood 2+ H (Negative) Urine Nitrate Negative (Negative) Urine Bilirubin Negative (NEGATIVE) Urine Urobilinogen 1.0 (0.2) E.U./dL Ur Leukocyte Esterase Negative (NEGATIVE) Urine RBC 0-1/hpf D (0-5/HPF) Urine WBC 1-5/hpf (0-5/HPF) Ur Squamous Epith Cells 1-5 /hpf (0-5/HPF) Urine Bacteria None seen (None) Ur Culture Indicated? Cult not indicated Point of Care Testing Test Results Negative MDM Narrative Medical decision making narrative: 26-year-old female with a history of ovarian cysts, PID, PCOS, endometriosis, infertility presents to the ED with 5 days of sharp left-sided adnexal pain. Concern for ruptured ovarian cyst versus ovarian torsion versus endometriosis versus endometrioma versus versus ectopic versus other. Will obtain UA, urine HCG, pelvic ultrasound. Will treat headache and pelvic pain with Tylenol, ibuprofen, Benadryl, Reglan. Pelvic ultrasound shows left ovarian cyst that might be partially ruptured versus endometrioma. There is good flow to both ovaries. No other acute findings. Discussed findings with patient. Patient agrees to follow-up with Dr. Chapman. Patient's pain improved with the medications. Patient agrees to take Tylenol and ibuprofen for pain control at home. ED return precautions were discussed with patient. She verbalized understanding. Medical records reviewed: Yes <Al Ro MD - Last Filed: 10/13/22 20:49> Lab Data Labs: Lab Results 10/01/22 Range/Units 10:40 Urine Color Yellow Urine Appearance Sl cloudy Urine pH 7.0 (4.5-8.0) Ur Specific [place] 1.020 (1.000-1.035) Urine Protein Negative (Negative) Urine Glucose (UA) Negative (Negative) g/dL Urine Ketones Negative (NEGATIVE) Urine Occult Blood 2+ H (Negative) Urine Nitrate Negative (Negative) Urine Bilirubin Negative (NEGATIVE) Urine Urobilinogen 1.0 (0.2) E.U./dL Ur Leukocyte Esterase Negative (NEGATIVE) Urine RBC 0-1/hpf D (0-5/HPF) Urine WBC 1-5/hpf (0-5/HPF) Ur Squamous Epith Cells 1-5 /hpf (0-5/HPF) Urine Bacteria None seen (None) Ur Culture Indicated? Cult not indicated Point of Care Testing Test Results Negative Discharge Plan Departure Patient Disposition: Home Clinical Impression: Adnexal pain Instructions: DI for Ovarian Cyst Activity Restrictions/Additional Instructions: You were evaluated in the ED today for left-sided pelvic pain. Your labs were normal. Your ultrasound shows a potentially partially ruptured cyst that could be causing your symptoms. The treatment for this is pain control and follow-up with OBGYN. You were given some medications for the pelvic pain and for your headache with good results. Please continue ibuprofen and Tylenol at home. Please follow-up with your OBGYN Dr. Chapman as soon as possible. Return to the ED if your pain worsens. Prescriptions: No Action acetaminophen 325 MG tablet 325 mg PO PRN PRN (Reason: Pain (Scale Score 1-3)) Qty: 0 multivitamin, stress formula Combo Pack PO Probiotics PO Referrals: Heber Leija, [Primary Care Provider] - Stand Alone Forms: Patient Portal/API <Al Ro MD - Last Filed: 10/13/22 20:49> Cosign ED Attending Cosignature Attestation: I was immediately available in the department for consultation. This documentation has been reviewed and I agree with assessment and plan. Supervised by Al Ro MD
== END 2022-10-01 14:20 | disposition home or self-care (01) ==
PROVIDERS: Emergency Medicine; Emergency Provider Student in an Organized Health Care Education/Training Program; PCP Family Medicine
DX: R10.2 Pelvic and perineal pain (principal); R51.9 Headache, unspecified; R11.0 Nausea
CPT/HCPCS: 76830; 76856; 81001; 81025; 99283; 99284

== ENCOUNTER 2023-01-27 06:34 | Day surgery (SDC) | payer BC, OTHER, SELFPAY ==
[2023-01-15 08:51] VITALS: BMI 35.3
[2023-01-27] VITALS (10 sets, daily range): BP systolic 125–169; BP diastolic 81–106; PULSE 71–100; RESP 11–24; TEMP 36.3–36.6; O2SAT 91–98; BMI 35.3
--- NOTE | 2023-01-27 07:36 | P.HPOB_ITS ---
History of Present Illness History of Present Illness Reason for admission: pelvic pain (Possible left endometrioma) Narrative: Tran Nieves is a 27 year old female G0 who presents for a diagnostic laparoscopy, possible removal of left endometrioma, and possible fulguration of endometriosis. Patient had an ultrasound October 10, 2022 in the emergency department when she presented for progressively worsening left lower quadrant pain. [facility] Medical History Cervical cancer screening PCOS (polycystic ovarian syndrome) Surgical History History of third molar tooth extraction Social History household members: spouse Smoking Status: Former smoker alcohol intake: never Meds Home Medications and Allergies Home Medications Medication Instructions Recorded Confirmed Type acetaminophen 325 mg tablet 325 mg PO PRN PRN Pain (Scale 08/19/17 12/18/22 History Score 1-3) ##0 Probiotics PO 02/13/21 12/18/22 History multivitamin, stress formula pkg PO 07/05/22 12/18/22 History Allergies Allergy/AdvReac Type Severity Reaction Status Date / Time Penicillins [PENICILLINS] Allergy Severe Anaphylaxis Verified 01/27/23 07:11 Exam Narrative Exam Narrative: HEENT: No thyromegaly, no anterior cervical or supraclavicular lymphadenopathy. Lungs:Clear to auscultation bilaterally, no wheezes. Cardiovascular: Regular rate and rhythm, no murmurs, rubs, or gallops. Abdomen: No scars. No hepatosplenomegaly. No masses palpable. External genitalia: Normal Vagina: Normal Cervix: Nulliparous Bimanual exam: [6 Week size anteverted uterus. Mobile. Left adnexal tenderness. Extremities: No edema Assessment & Plan Assessment & Plan narrative: Assessment: 27-year-old 0 with a left ovarian cyst, presumed endometrioma Pelvic pain Plan: Diagnostic laparoscopy with removal of left ovarian endometrioma, and possible fulguration of endometriosis The risks, benefits, and alternatives to the procedure were explained to the patient. The risks including bleeding, infection, injury to the bowel, bladder, or ureters. She understands these risks and agrees to proceed. A full par Q was held and consent form was signed.
--- NOTE | 2023-01-27 07:42 | PM.PREOP ---
Pre-operative Note COVID-19 Criteria for continued procedure: Non-surgical alternatives not available or appropriate per current SOC Interval Note History & Physical reviewed/Exam performed by Physician: Yes Changes to H&P: No H&P completed within 30 days and has changed as indicated here:: 01/27/23
[2023-01-27] MEDS: LACTATED RINGERS 1,000 ML 42 ML IV ×2 (07:45→08:47)
--- NOTE | 2023-01-27 08:14 | SUR.OPER ---
Lithotomy on padded OR bed, head on pillow, arms secured on padded arm boards at <90 degrees abduction. Legs secured in padded yellow fins stirrups.
[2023-01-27] MEDS: BUPIVACAINE 0.5% (PF) 20 ML, EPINEPHrine 0.1 MG INJ (08:31)
--- NOTE | 2023-01-27 09:00 | PM.GYNOP.1 ---
Operative Date/Time/Diagnoses Date of procedure: 01/27/23 Time of procedure: 09:00 Pre-op diagnosis: Left Pelvic pain Left endometrioma Post-op diagnosis: same Procedure & Clinicians Procedure: Procedures Operation Date: 01/27/23 07:45 Actual Procedure Side Surgeon p DX Laparoscopy w/ Fulguration of Endometriosis, removal of left endometrioma Chromotubation Dee Chapman MD Indications: Left pelvic pain Left endometrioma by ultrasound Surgeon: Dee Chapman Anesthesia Type: General and Local Operative Notes Findings: 6 week size anteverted uterus Normal right tube and ovary Normal appendix Normal liver and gallbladder Enlarged left ovary that was originally stuck to the left pelvic sidewall Endometrioma in the left ovary Surface endometriosis on the left ovary Closure Type: primary Specimen(s): none Estimated blood loss (mL): 5 Blood products transfused: none Procedure in detail: After informed consent was obtained, the patient was taken to the operating room where she was placed in the dorsal supine position. After adequate general endotracheal anesthesia was achieved, she was placed in the dorsal lithotomy position, and prepped and draped in the usual sterile fashion. A time-out was performed. A bivalve speculum was placed into the vagina and the anterior lip of the cervix was grasped with a single-tooth tenaculum. The cervical os was sequentially dilated until the Zumi uterine manipulator could pass easily into the endometrial cavity. The single-tooth tenaculum was removed from the anterior lip of the cervix. The bivalve speculum was removed from the vagina. Attention was then turned to the abdomen where 6 cc of 0.5% Marcaine with epinephrine were injected in the umbilical fold. A 5 mm incision was made. The Veress needle was placed into the peritoneal cavity, and its placement confirmed by aspiration and drop test. The abdominal cavity was insufflated with 3.2 L of CO2. The Veress needle was removed, and a 5 mm trocar was placed without difficulty. Initial inspection of the pelvis and abdomen revealed the findings noted above. Two other incisions were made 4 cm lateral to the midline at the level of the umbilicus after 6 cc of 0.5% Marcaine with epinephrine were injected. Two 5 mm trocars were placed under direct visualization. A probe was used to identify the appendix and the right tube and ovary. Initially the left tube and ovary were stuck to the left pelvic sidewall. Using the probe the ovary was peeled away from the pelvic sidewall. There was found to be an endometrioma inside the ovary. The ovary was opened and the endometrioma was removed. Hemostasis was achieved with the power seal. The pelvis was copiously irrigated with warm normal saline. On the surface of the left ovary there were significant endometriotic lesions. These were cauterized with the spatula cautery. The instruments were removed from the abdomen. The CO2 was allowed to escape. The incisions were repaired with 4-0 Monocryl in a subcuticular fashion. Steri-Strips and Allevyn dressings were placed. The Zumi uterine manipulator was removed from the uterus. Sponge, lap, and instrument counts were correct x2. The patient tolerated the procedure well, and was taken to PACU in stable condition. Complications: none Post-operative Condition: stable Disposition: PACU Plan for aftercare: Home after recovery
[2023-01-27] MEDS: HYDROMORPHONE 2 MG INJ IV ×2 (09:03→09:19)
[2023-01-27] MEDS: OXYCODONE/ACETAMINOPHEN 5/325 TABLET 1 TAB PO ×2 (09:26→10:02)
--- NOTE | 2023-01-27 09:40 | SUR.PHASEI ---
woke in PACU with 8/10 abdomen pain. medicated per SEP. transferred to phase 2. pain a 6/10, VS much better and appears more comfortable.
--- NOTE | 2023-01-27 10:36 | SUR.PHASEII ---
Patient reported trouble breathing upon sitting up and getting dressed. O2 sat 98%RA. Patient reported breathing improvement with rest.
== END 2023-01-27 10:34 | disposition home or self-care (01) ==
PROVIDERS: PCP Family Medicine; Referring Provider Obstetrics & Gynecology; Visit Provider Obstetrics & Gynecology
PROC: 0U5B4ZZ Destruction of Endometrium, Percutaneous Endoscopic Approach (ICD-10-PCS; CPT 58662; principal; 2023-01-27 07:45)
DX: N80.9 Endometriosis, unspecified (principal)
CPT/HCPCS: 58662; J0171; J0330; J1100; J1170; J1885; J2405; J2704; J3010; J3490

== ENCOUNTER 2024-05-19 17:42 | Emergency (ER) | payer BC, OTHER, SELFPAY ==
[2024-05-19] VITALS (15 sets, daily range): BP systolic 140–158; BP diastolic 72–107; PULSE 81–93; RESP 13–22; TEMP 37.1; O2SAT 99–100; BMI 36.9
--- NOTE | 2024-05-19 17:53 | DI.RAD.S_ITS ---
PROCEDURE: XR CHEST 1V INDICATIONS: chest pain TECHNIQUE: One view of the chest was acquired. COMPARISON: Merged With [facility], CR, XR CHEST 2V, 06/24/2020, 20:50. FINDINGS: Surgical changes and devices: None. Lungs and pleura: Lungs are clear. No pleural effusions or pneumothorax. Mediastinum: Mediastinal contours appear normal. Heart size is normal. Bones and chest wall: No suspicious bony lesions. Overlying soft tissues appear unremarkable. IMPRESSION: No acute cardiopulmonary abnormality is seen. Approved by: David Tolentino M.D. on 05/19/2024 at 18:11
--- NOTE | 2024-05-19 17:53 | EKG_ITS ---
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
--- NOTE | 2024-05-19 18:08 | ED_ITS ---
HPI - General Adult General Chief complaint: Hypertension Stated complaint: neck/lt shoulder pain, bp of 204/129, sent by pcp Time Seen by Provider: 05/19/24 18:04 Source: patient Mode of arrival: Ambulatory History of Present Illness HPI narrative: 28-year-old female with 2 weeks duration intermittent left lateral neck, left upper trapezius area discomfort, worse with movements of left upper extremity and head movements. No numbness or tingling to left arm. No left-sided face or lower extremity numbness or tingling. No injuries specifically recalled, no new activities. 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 No associated diaphoresis, nausea, chest pain, shortness of breath. She has elevated blood pressure noted in clinic when she saw her PCP about this last few days, was not started on blood pressure medication. She takes Tylenol and Motrin for the discomfort, no other therapies tried. He has not tried any muscle relaxants. No known CAD. Denies cardiac risk factors of diabetes, hypertension, hyperlipidemia, smoking, no family history of very young onset CAD. No history of blood clots to legs or lungs, no leg pain or swelling symptoms. Related Data Home Medications Medication Instructions Recorded Confirmed acetaminophen 325 mg tablet 325 mg PO PRN PRN Pain (Scale 08/19/17 05/17/24 Score 1-3) ##0 Probiotics PO 02/13/21 05/17/24 multivitamin, stress formula pkg PO 07/05/22 05/17/24 Previous Rx's Medication Instructions Recorded methocarbamol 500 mg tablet 500 mg PO TID 7 days #21 tabs 05/19/24 Allergies Allergy/AdvReac Type Severity Reaction Status Date / Time Penicillins [PENICILLINS] Allergy Severe Anaphylaxis Verified 05/17/24 15:43 Review of Systems Review of Systems Narrative: see HPI Patient History Medical History Situational stress Borderline hypertension PCOS (polycystic ovarian syndrome) Surgical History History of third molar tooth extraction Social History household members: spouse Smoking Status: Former smoker alcohol intake: never Smoking Status: Former smoker alcohol intake frequency: 0-2 drinks per day Substance Use Type: does not use Exam Narrative Exam Narrative: GENERAL: Well-developed patient, in mild distress. HEAD: Atraumatic. Normocephalic. EYES: Pupils equal round and reactive. Extraocular motions intact. No scleral icterus. No injection or drainage. ENT: Nose without bleeding, purulent drainage. Throat without erythema, tonsillar hypertrophy or exudate. Airway patent. NECK: Trachea midline. No gross deformities, left lateral scaling musculature, superior medial aspect trapezius musculature. No midline cervical spine tenderness. CARDIOVASCULAR: Regular rate and rhythm without murmurs, gallops, or rubs. RESPIRATORY: Clear to auscultation. Breath sounds equal bilaterally. No wheezes, rales, or rhonchi. GASTROINTESTINAL: Abdomen soft, non-tender, nondistended. EXTREMITIES: No edema or joint tenderness. Patient able to move her left upper extremity well, however with resistance against flexion of her left upper extremity she has reproduction of her left superior trapezius area discomfort. Some tenderness along the superior trapezius, no skin changes, no rash. BACK: Nontender witho motor functions grossly nonfocal. Ut deformity or crepitance. No flank tenderness. NEURO: AOx3. Motor functions grossly nonfocal SKIN: No rash or erythema of visible areas Initial Vital Signs Initial Vital Signs: Vital Signs Temperature 98.7 F 05/19/24 17:44 Pulse Rate 89 05/19/24 17:44 Respiratory Rate 18 05/19/24 17:44 Blood Pressure 156/102 H 05/19/24 17:44 Pulse Oximetry 100 05/19/24 17:44 Oxygen Delivery Method Room Air 05/19/24 17:44 Course Orders Ordered: ED Orders 05/19/24 17:53 XR chest 1V Stat EKG-12 Lead Stat 05/19/24 18:06 Complete Blood Count AUTO DIFF Stat Comprehensive Metabolic Panel Stat HCG Quantitative /Beta subunit Stat Lipase Stat Magnesium Stat NT-proBNP (BNP-Adult 18+) Stat PTT Partial Thromboplastin Rohit Stat Prothrombin Time INR Stat Troponin & CK Cardiac Panel Stat 05/19/24 20:12 Urinalysis and Microscopic Stat Discontinued Medications Ibuprofen (Ibuprofen 400 Mg Tablet) 400 mg PO NOW ONE Stop: 05/19/24 18:24 Last Admin: 05/19/24 18:31 Dose: 400 mg Documented By: LINA Methocarbamol (Methocarbamol 500 Mg Tablet) 500 mg PO NOW ONE Stop: 05/19/24 18:24 Last Admin: 05/19/24 18:32 Dose: 500 mg Documented By: LINA Vital Signs Vital signs: Vital Signs - 8 hr 05/19/24 17:44 05/19/24 17:51 05/19/24 17:55 Temperature 98.7 F Pulse Rate 89 Respiratory Rate 18 Blood Pressure 156/102 H 143/88 H 147/92 H Pulse Oximetry 100 Oxygen Delivery Method Room Air 05/19/24 17:59 05/19/24 18:00 05/19/24 18:08 Temperature Pulse Rate 93 H 82 Respiratory Rate Blood Pressure 151/84 H Pulse Oximetry 99 100 Oxygen Delivery Method Room Air 05/19/24 18:08 05/19/24 18:15 05/19/24 18:15 Temperature Pulse Rate 83 84 Respiratory Rate 14 16 Blood Pressure 157/87 H Pulse Oximetry 100 100 Oxygen Delivery Method 05/19/24 18:30 05/19/24 18:30 05/19/24 18:45 Temperature Pulse Rate 84 Respiratory Rate 14 Blood Pressure 150/88 H 150/92 H Pulse Oximetry 100 Oxygen Delivery Method 05/19/24 18:45 05/19/24 19:00 05/19/24 19:00 Temperature Pulse Rate 92 H 83 Respiratory Rate 18 18 Blood Pressure 158/96 H Pulse Oximetry 100 100 Oxygen Delivery Method Room Air 05/19/24 19:15 05/19/24 19:15 05/19/24 19:17 Temperature Pulse Rate 91 H Respiratory Rate 15 Blood Pressure 158/107 H 154/82 H Pulse Oximetry 100 Oxygen Delivery Method 05/19/24 19:17 05/19/24 19:30 05/19/24 19:30 Temperature Pulse Rate 81 83 Respiratory Rate 13 18 Blood Pressure 150/75 H Pulse Oximetry 100 100 Oxygen Delivery Method 05/19/24 19:45 05/19/24 19:45 05/19/24 20:00 Temperature Pulse Rate 84 Respiratory Rate 16 Blood Pressure 140/72 141/73 H Pulse Oximetry 100 Oxygen Delivery Method Room Air 05/19/24 20:00 Temperature Pulse Rate 89 Respiratory Rate 22 Blood Pressure Pulse Oximetry 100 Oxygen Delivery Method Medical Decision Making Lab Data Lab results reviewed: Yes I reviewed the patient's lab results. Lab results narrative: White blood cell count 8100, hemoglobin 13.7, platelets adequate. Basic metabolic panel unremarkable, normal renal function noted, electrolytes unremarkable. Glucose 123. HCG negative. Liver functions normal. Troponin negative. BNP normal. 05/19/24 18:06 05/19/24 18:06 Labs: Lab Results 05/19/24 05/19/24 Range/Units 18:06 20:12 WBC 8.1 (4.5-11.0) X10^3/uL RBC 5.03 (4.0-5.2) X10^6/uL Hgb 13.7 (12.0-16.0) g/dL Hct 41.8 (36-46) % MCV 83.0 (80-100) fL MCH 27.3 (26-34) PG MCHC 32.9 (30-36) % RDW 14.9 H (11.6-14.8) % Plt Count 311 (150-400) X10^3/uL Neut % (Auto) 63.4 (50-75) % Lymph % (Auto) 31.5 (25-40) % Banner % (Auto) 4.0 (3-14) % Eos % (Auto) 0.7 L (2-4) % Baso % (Auto) 0.4 (0-2) % Neut # (Auto) 5200 (6438-1949) /uL Lymph # (Auto) 2600 (7825-2890) /uL Banner # (Auto) 300 (0-900) /uL Eos # (Auto) 100 (0-450) /uL Baso # (Auto) 0 (0-100) /uL PT 11.6 (9.4-12.5) SECONDS INR 1.0 (0.9-1.3) APTT 38 H (25.1-36.5) SECONDS Sodium 140 (137-145) mmol/L Potassium 3.5 (3.4-5.1) mmol/L Chloride 103 (98-107) mmol/L Carbon Dioxide 28 (22-32) mmol/L BUN 6 L (7-17) mg/dL Creatinine 0.78 (0.52-1.04) mg/dL Estimated GFR > 60 (>60) mL/min BUN/Creatinine Ratio 7.7 (6-22) Glucose 123 H (70-100) mg/dL Calcium 9.2 (8.4-10.2) mg/dL Magnesium 2.1 (1.6-2.3) mg/dL Total Bilirubin 0.5 (0.2-1.3) mg/dL AST 24 (14-36) IU/L ALT 15 (<35) IU/L Alkaline Phosphatase 69 (38-126) U/L Total Creatine Kinase 100 (30-135) U/L Troponin I < 0.012 (0.01-0.034) ng/mL NT-Pro-B Natriuret Pep < 20 (<125) pg/mL Total Protein 7.8 (6.3-8.2) g/dL Albumin 4.7 (3.5-5.0) g/dL Globulin 3.1 (1.7-4.1) g/dL Albumin/Globulin Ratio 1.5 (1.0-2.8) Lipase 90 (23-300) U/L HCG, Quant < 2.39 mIU/mL Urine Color Yellow Urine Appearance Cloudy Urine pH 8.0 (4.5-8.0) Ur Specific [place] 1.020 (1.000-1.035) Urine Protein Negative (Negative) Urine Glucose (UA) Negative (Negative) g/dL Urine Ketones Negative (NEGATIVE) Urine Occult Blood Negative (Negative) Urine Nitrate Negative (Negative) Urine Bilirubin Negative (NEGATIVE) Urine Urobilinogen 0.2 (0.2) E.U./dL Ur Leukocyte Esterase Negative (NEGATIVE) Urine RBC None seen (0-5/HPF) Urine WBC None seen (0-5/HPF) Ur Squamous Epith Cells 1-5 /hpf (0-5/HPF) Amorphous Sediment 4+ Urine Bacteria Few (2-10) H (None) Ur Culture Indicated? Cult not indicated Vol Urine Centrifuged 10ml (spun) Imaging Data Chest x-ray: Radiologist's Impression: [address] [address] XRay Report Signed Patient: Tran Nieves MR#: [id number] : 1995 Acct:[id number] Age/Sex: 28 / F Date of Service: 05/19/24 Loc: ED Accession Number: [id number] Procedure: XR chest 1V Ordering Provider: Mank,Cheri C D.O. PROCEDURE: XR CHEST 1V INDICATIONS: chest pain TECHNIQUE: One view of the chest was acquired. COMPARISON: [facility], CR, XR CHEST 2V, 06/24/2020, 20:50. FINDINGS: Surgical changes and devices: None. Lungs and pleura: Lungs are clear. No pleural effusions or pneumothorax. Mediastinum: Mediastinal contours appear normal. Heart size is normal. Bones and chest wall: No suspicious bony lesions. Overlying soft tissues appear unremarkable. IMPRESSION: No acute cardiopulmonary abnormality is seen. Approved by: David Tolentino M.D. on 05/19/2024 at 18:11 ECG Data Attestation: I personally reviewed and interpreted this ECG as follows: Interpretation: Normal sinus rhythm with rate of 82, no obvious ST segment elevation or depression symptoms. Some artifact wandering baseline noted multiple leads. MD 128, QRS 76, QTC 418. MDM Narrative Medical decision making narrative: 28-year-old female with ongoing left lateral neck, superior left trapezius discomfort for the last 2 weeks, elevated blood pressures in clinic, not started on any blood pressure control medications. Triage studies sent from clinic included EKG and chest x-ray and lab studies, all unremarkable. Oral ibuprofen dose given, oral Robaxin/methocarbamol muscle relaxant dose given. Further observation. Symptoms improved. Blood pressure also improved. Repeat blood pressure 140/72. It is possible some component of elevated blood pressure could be due to pain. No obvious secondary causes with workup thus far. Follow up for further blood pressure and left neck/trapezius since with your regular provider. Trial of [id number] analgesics next few days, prescription Robaxin/methocarbamol to use for muscle spasm next few days if needed. Return precautions discussed. Home with family Discharge Plan Departure Patient Disposition: Home Clinical Impression: Neck pain on left side, Trapezius muscle spasm, Elevated blood pressure reading Activity Restrictions/Additional Instructions: 28-year-old female with 2 weeks duration left lateral neck and left upper shoulder/trapezius muscle area discomfort, worse with movements, on examination some tenderness in those muscular areas, also some discomfort with resistance left upper extremity, with pain reproducible in those areas, likely musculoskeletal. EKG, blood testing, chest x-ray studies from triage reassuring. Mildly elevated blood pressure noted, but in context of pain. Blood pressure improved after pain medication and muscle relaxant, it is possible some component of your blood pressure elevation might be due to pain. Hold blood pressure medications at this time, further assess as an outpatient for now. Trial of analgesic pain reliever, and muscle relaxant. Further doses of Robaxin/methocarbamol muscle relaxant sent to your pharmacy to use if needed next few days. Consider use of [id number] Tylenol and or Motrin as needed for discomfort control of symptoms. Follow up blood pressure and left upper extremity/neck symptoms with your regular doctor, to see if further workup required, and to see if blood pressure control medications indicated. Return earlier to this/nearest emergency department for any change worsening symptoms or any concerns prior Prescriptions: New methocarbamol 500 mg tablet 500 mg PO TID 7 Days Qty: 21 0RF No Action acetaminophen 325 MG tablet 325 mg PO PRN PRN (Reason: Pain (Scale Score 1-3)) Qty: 0 multivitamin, stress formula Combo Pack PO Probiotics PO Referrals: Heber Leija DO [Primary Care Provider] - Stand Alone Forms: Patient Portal/API/Survey
[2024-05-19 18:15] LABS: Add Manual Diff / Slide Review NO; Basophils Absolute Auto 0 /uL (0-100); Basophils Percent Auto 0.4 % (0-2); Eosinophils Absolute Auto 100 /uL (0-450); Eosinophils Percent Auto 0.7 % (2-4); Hematocrit 41.8 % (36-46); Hemoglobin 13.7 g/dL (12.0-16.0); Lymphocytes Absolute Auto 2600 /uL (1100-4500); Lymphocytes Percent Auto 31.5 % (25-40); Mean Corpuscular HGB Conc 32.9 % (30-36); Mean Corpuscular Hemoglobin 27.3 PG (26-34); Monocytes Absolute Auto 300 /uL (0-900); Neutrophils Absolute Auto 5200 /uL (1500-7000); Neutrophils Percent Auto 63.4 % (50-75); Platelet Count 311 X10^3/uL (150-400); Red Blood Cell Count 5.03 X10^6/uL (4.0-5.2); Red Cell Distribution Width 14.9 % (11.6-14.8); White Blood Cell Count 8.1 X10^3/uL (4.5-11.0)
[2024-05-19 18:21] LABS: Prothrombin Time 11.6 SECONDS (9.4-12.5)
[2024-05-19 18:23] LABS: PTT Partial Thromboplastin Tim 38 SECONDS (25.1-36.5)
[2024-05-19 18:30] LABS: Alanine Aminotransferase 15 IU/L (<35); Albumin 4.7 g/dL (3.5-5.0); Albumin Globulin Ratio 1.5 (1.0-2.8); Alkaline Phosphatase 69 U/L (38-126); Aspartate Aminotransferase 24 IU/L (14-36); BUN Creatinine Ratio 7.7 (6-22); Bilirubin Total 0.5 mg/dL (0.2-1.3); Blood Urea Nitrogen 6 mg/dL (7-17); Calcium 9.2 mg/dL (8.4-10.2); Carbon Dioxide 28 mmol/L (22-32); Chloride 103 mmol/L (98-107); Creatine Kinase 100 U/L (30-135); Estimated Glomerular Filt Rate > 60 mL/min (>60); Globulin 3.1 g/dL (1.7-4.1); Glucose 123 mg/dL (70-100); HEMOLYSIS < 15 (0-50); Lipase 90 U/L (23-300); Magnesium 2.1 mg/dL (1.6-2.3); Potassium 3.5 mmol/L (3.4-5.1); Sodium 140 mmol/L (137-145); Total Protein 7.8 g/dL (6.3-8.2)
[2024-05-19] MEDS: IBUPROFEN 400 MG TABLET PO (18:31)
[2024-05-19] MEDS: methocarbamoL 500 MG TABLET PO (18:32)
[2024-05-19 18:42] LABS: NT-proBNP (BNP-Adult 18+) < 20 pg/mL (<125); Troponin I < 0.012 ng/mL (0.01-0.034)
[2024-05-19 19:21] LABS: HCG Quantitative /Beta subunit < 2.39 mIU/mL
[2024-05-19 20:24] LABS: Bilirubin Urine UA NEGATIVE (NEGATIVE); Color Urine UA YELLOW; Glucose Urine UA NEGATIVE (Negative); Ketones Urine UA NEGATIVE (NEGATIVE); Leukocyte Esterase Urine UA NEGATIVE (NEGATIVE); Nitrite Urine UA NEGATIVE (Negative); Occult Blood Urine UA NEGATIVE (Negative); Protein Urine UA NEGATIVE (Negative); Urobilinogen Urine UA 0.2 E.U./dL (0.2)
[2024-05-19 20:27] LABS: Appearance Urine UA CLOUDY
[2024-05-19 20:28] LABS: Urine Volume 10mL (spun)
[2024-05-19 20:33] LABS: Amorphous Sediment Urine 4+; Bacteria Urine Few (2-10); Culture Indicated Urine Cult Not Indicated; RBC Urine None Seen (0-5/HPF); Squamous Epithelial Cell Urine 1-5 /HPF (0-5/HPF); WBC Urine None Seen (0-5/HPF)
== END 2024-05-19 20:39 | disposition home or self-care (01) ==
PROVIDERS: Emergency Medicine; Emergency Provider Emergency Medicine; PCP Family Medicine
DX: M54.2 Cervicalgia (principal); R07.9 Chest pain, unspecified; M62.830 Muscle spasm of back; R03.0 Elevated blood-pressure reading, without diagnosis of hypertension
CPT/HCPCS: 36415; 71045; 80053; 81001; 82550; 83690; 83735; 83880; 84484; 84702; 85025; 85610; 85730; 93005; 99284